=== PATIENT | male | born 1995 | race Caucasian/White ===

== ENCOUNTER 2016-10-09 09:23 | Emergency (ER) | payer OTHER ==
[2016-10-09] MEDS ORDERED: IBUPROFEN 600 MG TAB PO ONE ×2 (09:40→09:42)
[2016-10-09] MEDS ORDERED: ACETAMINOPHEN 500 MG TAB ONE (09:41)
[2016-10-09] MEDS ORDERED: ACETAMINOPHEN 500 MG TAB PO ONE (09:42)
[2016-10-09] MEDS ORDERED: HYDROmorphONE/DILAUDID 1 MG/ML SYR IVP ONE (09:59)
--- NOTE | 2016-10-09 09:59 | EDPHY ---
H & P Stated Complaint: saw eent yesterday/peñaloza/rx abx Time Seen by Provider: 10/09/16 09:37 HPI/ROS: CHIEF COMPLAINT: Headache pain HISTORY OF PRESENT ILLNESS: This is a 21-year-old male with a 3 day history of progressively worsening headache. It is located in the region of his left cheek and above his left eye. He has no history of migraines. He saw an ear, nose, and throat specialist yesterday and was diagnosed with sinusitis, via endoscopy. He was started on Augmentin and prednisone. He has been taking Tylenol for headache pain, with his last dose yesterday. He presents this morning with severe pain, much worse than it was yesterday. He has not had fever. He has mild sinus drainage. He has had sinus infections in the past. He had a recent nasal bone fracture, about 2 weeks ago due to a fall while skiing. No loss of consciousness at that time. He denies pain. Today he denies change in vision, earache or loss of hearing, difficulty with speech, numbness, weakness, and confusion. REVIEW OF SYSTEMS: A ten point review of systems was performed and is negative with the exception of the items mentioned in the HPI. Source: Patient Exam Limitations: No limitations - Personal History Current Tetanus/Diphtheria Vaccine: Unsure - Medical/Surgical History Hx Asthma: No Hx Chronic Respiratory Disease: No Hx Diabetes: No Hx Cardiac Disease: No Hx Renal Disease: No Hx Cirrhosis: No Hx Alcoholism: No Hx HIV/AIDS: No Hx Splenectomy or Spleen Trauma: No Other PMH: denies - Social History Smoking Status: Never smoked Alcohol Use: Occasionally Additional Social History: He is a student at the [employer]. - Physical Exam Exam: General Appearance: Alert. Crying. Holding his left forehead. Vital signs reviewed. Eyes: Pupils equal and round, no conjunctival injection, no discharge. Anicteric. ENT, Mouth: Mucous membranes are moist, no oropharyngeal erythema or edema. No visible sinus drainage. Left maxillary sinus tenderness. Neck: No lymphadenopathy, supple. No meningeal signs. Respiratory: Lungs are clear to auscultation; no wheezes, rales, or rhonchi. Cardiovascular: Regular rate and rhythm; no murmur, rub, or gallop. Gastrointestinal: Abdomen is soft and nontender, no masses or organomegaly, bowel sounds normal. Skin: Warm and dry, no rashes on exposed skin, normal color. Back: Nontender to palpation over the thoracolumbar spine. No CVAT. Neurological: Alert and oriented. Moving all four extremities easily and equally. Cranial nerves II through XII are examined and are intact (visual acuity not tested). Strength is 5 over 5 bilaterally with testing of all major motor groups. Sensation is intact to light touch over all 4 extremities. Deep tendon reflexes are 2+ in the biceps and knees bilaterally. [id number] is performed accurately. Psychiatric: Normal affect. Constitutional: Initial Vital Signs Temperature (C) 36.9 C 10/09/16 09:27 Heart Rate 58 L 10/09/16 09:27 Respiratory Rate 20 10/09/16 09:27 Blood Pressure 124/85 H 10/09/16 09:27 O2 Sat (%) 96 10/09/16 09:27 O2 Delivery Mode Room Air Allergies/Adverse Reactions: No Known Allergies Allergy (Verified 10/09/16 09:26) Home Medications: Medication Instructions Recorded predniSONE 60 mg PO DAILY #21 tab 05/06/16 Augmentin 875 MG TAB (*) 10/09/16 Hydrocodone/APAP 5/325 [Hulett 1 - 2 tab PO Q4 PRN #10 tab 10/09/16 5/325 (RX)] Medical Decision Making - Diagnostics Imaging: CT scan of the brain performed and reported to me by Dr. Austin Enriquez. I have reviewed the images. He reports left maxillary sinusitis. No acute findings intracranially involving the brain. No nasal bone fracture visualized. ED Course/Re-evaluation: 21-year-old male with diagnosis of left maxillary sinusitis with worsening headache pain. He received Dilaudid 0.5 mg IV in the emergency department with significant pain relief. He also received Tylenol and ibuprofen. CT scan of the head is negative for intracranial involvement or acute traumatic findings ( he had a fall within the last few weeks). He is taking Augmentin and prednisone. He is advised to continue these medications. Differential Diagnosis: I considered a differential diagnosis that includes but is not limited to worsening sinusitis, intracranial abscess as a result of extension of sinusitis , postconcussion syndrome, and intracranial bleed. - Data Points Medications Given: Discontinued Medications Acetaminophen (Tylenol) 500 mg PO EDNOW ONE Stop: 10/09/16 09:43 Last Admin: 10/09/16 09:43 Dose: 500 mg Hydromorphone HCl (Dilaudid) 0.5 mg IVP EDNOW ONE Stop: 10/09/16 10:00 Last Admin: 10/09/16 10:09 Dose: 0.5 mg Ibuprofen (Motrin) 600 mg PO EDNOW ONE Stop: 10/09/16 09:43 Last Admin: 10/09/16 09:43 Dose: 600 mg Departure - Departure Disposition: Home, Routine, Self-Care Clinical Impression: Sinusitis, acute Qualifiers: Sinusitis location: maxillary Recurrence: non-recurrent Qualified Code(s): J01.00 - Acute maxillary sinusitis, unspecified Headache Qualifiers: Headache type: other headache syndrome Qualified Code(s): G44.89 - Other headache syndrome Condition: Good Instructions: Sinusitis (ED), Acute Headache (ED) Additional Instructions: Adult Pain & Fever Control: We recommend Acetaminophen (Tylenol) and Ibuprofen (Motrin,Advil) for pain and fever control. When fever is high or pain severe, both drugs can be used at the same time, but at different intervals. Please note the time differences. Your dose is: Acetaminophen [650]mg every 4 to 6 hours Ibuprofen [400]mg every [8] hours with food OR Note: do not take Acetaminophen with Hydrocodone (Vicodin, Lortab) or Oycodone (Percocet). These medications also contain Acetaminophen. No more than 3000mg of Acetaminophen should be taken in 24 hours (for an adult). I am prescribing Hulett for relief of severe headache. This contains hydrocodone , and opiate medication. You cannot drive or engage in potentially dangerous activities while taking this medication. Do not drink alcohol while taking this medication. Watch your overall Tylenol intake. Each Hulett contains 325 mg of Tylenol. You can also take ibuprofen, as above. I they believe that your headache is due to your sinusitis which involves the left maxillary sinus. You can expect to have symptoms of sinusitis and headache for another day or so, while the antibiotics are starting to kick in. You should follow up with the reporting analyst. You can also follow up J[facility]. Referrals: [facility],. [Clinic] - As per Instructions Prescriptions: Hydrocodone/APAP 5/325 [Hulett 5/325 (RX)] 1 - 2 tab PO Q4 PRN #10 tab PRN Reason: pain
[2016-10-09] MEDS ORDERED: HYDROmorphONE/DILAUDID 1 MG/ML SYR ONE (10:00)
[2016-10-09 11:06] VITALS: BP 130/70; PULSE 70; RESP 14; TEMP 97.9; O2SAT 94
== END 2016-10-09 11:04 | disposition home or self-care (01) ==
DX: G44.89 Other headache syndrome (principal); J01.00 Acute maxillary sinusitis, unspecified
CPT/HCPCS: 96374; J1170